=== PATIENT | female | born 1965 | race Caucasian/White ===

== ENCOUNTER 2021-01-13 12:27 | Emergency (ER) | payer MEDICAID ==
[~2021-01-13] VITALS: Ht 139.7 cm; Wt 131.5 kg
[~2021-01-13 12:27] MED LIST: BUSPIRONE HCL15 MG PO; COREG25 M1 PO; FELODIPINE10 MG PO; MIN2.5 PO; ROPINIROLE HYDRO5 MG PO; TIROSINT50 MC1 PO; TORSEMIDE10 MG PO
[2021-01-13 13:33] LABS: BASOPHIL % 0.7 % (0.2-1.3); PLATELET COUNT 199 x10^3mcL (179-408)
[2021-01-13 13:43] LABS: microscopic required? NO
[2021-01-13 13:52] LABS: UA SPECIFIC GRAVITY <=1.005 (1.005-1.035); urine erythrocyte NEGATIVE (NEGATIVE)
[2021-01-13 14:09] LABS: T3 TOTAL 1.24 ng/mL
[2021-01-13 14:12] LABS: FREE T4 1.26 ng/dL (0.76-1.46); FREE THYROXINE INDEX 3.9 ug/dL (1.4-4.5); T4(THYROXINE) 10.7 ug/dL (4.7-13.3)
[2021-01-13 14:26] LABS: CALCIUM 9.2 mg/dL (8.5-10.1); CARBON DIOXIDE 29.3 mmol/L (21-32); CHLORIDE SERUM 102 mmol/L (98-107); CREATININE SERUM 0.9 mg/dL (0.6-1.0); GFR1 > 60 mL/min; GLUCOSE SERUM 84 mg/dL (74-106); POTASSIUM SERUM 4.1 mmol/L (3.5-5.1); SODIUM SERUM 137 mmol/L (136-145)
[2021-01-13 14:31] LABS: ALKALINE PHOSPHATASE 81 U/L (46-116); ALT/SGPT 29 U/L (14-59); AST/SGOT 21 U/L (15-37); BILIRUBIN TOTAL 0.4 mg/dL (0.20-1.00); CHOLESTEROL 176 mg/dL (<200); TOTAL PROTEIN, SERUM 6.8 g/dL (6.4-8.2); TRIGLYCERIDES 129 mg/dL (<150)
[2021-01-13 14:34] LABS: CHOLESTEROL/HDL RATIO 2.3; HDL CHOLESTEROL 76 mg/dL (40-60)
[2021-01-13] MEDS ORDERED: LASIX40 MG PO (15:30)
[2021-01-13 16:03] VITALS: BP 130/63
== END 2021-01-13 16:03 | disposition home or self-care (01) ==
LOC: ED 12:27
PROVIDERS: Specialist
DX: I89.0 Lymphedema, not elsewhere classified (principal); I10 Essential (primary) hypertension
CPT/HCPCS: 83880; 84439